=== PATIENT | female | born 1950 | race Caucasian/White ===

== ENCOUNTER → 2024-01-22 07:43 | Outpatient (BNVA) | payer MEDICARE, OTHER, SELFPAY | PROVIDERS: PCP Nurse Practitioner; Referring Provider Nurse Practitioner; Visit Provider Nurse Practitioner Adult Health | DX: R07.9 Chest pain, unspecified (principal); R11.0 Nausea; R51.9 Headache, unspecified | CPT/HCPCS: 99205 ==